=== PATIENT | male | born 1995 | race Caucasian/White ===

== ENCOUNTER 2025-03-18 | Outpatient (REF) | payer OTHER, SELFPAY ==
--- NOTE | ~2025-03-18 | XR_ITS ---
CLINICAL HISTORY: M51.369 - Other intervertebral disc degeneration, lumbar region without ... 7 views lumbar spine Comparison: None Findings: Normal alignment. No acute fractures or dislocation. No significant degenerative change. IMPRESSION: No acute findings. This document has been electronically signed by: Demarco Boston MD on 03/21/2025 10:53:25
--- OUTSIDE RECORDS SUMMARY | 2025-04-19 08:17 | XMS_ITS | Clinical Summary ---
Author Organization [facility] Address [address] [place] [address] Care Team Providers Care Post Tensioning Ironworker Helper Name Role Phone Roberto Walker PA-C Primary Care Provider [phone] Source Comments PLEASE NOTE, if this patient is a minor, it may be UNLAWFUL to discuss sensitive information that is contained in these records (such as FAMILY PLANNING, MENTAL HEALTH or SUBSTANCE ABUSE) with the minor patient's parent or other person without the patient's specific authorization.[facility] Allergies No known active allergies Medications meloxicam (MOBIC) 15 mg tabletIndicatio ns:Acute midline low back pain with bilateral sciatica Take 1 Tablet by mouth once daily 30 Tablet 02/24/2022 Active cyclobenzaprine (FLEXERIL) 10 mg tabletIndicatio ns:Acute midline low back pain with bilateral sciatica Take 1 Tablet by mouth nightly at bedtime as needed for muscle spasms 30 Tablet 1 02/25/2022 Active diclofenac sodium (VOLTAREN) 1 % gelIndications: Acute midline low back pain with bilateral sciatica,Chroni c left shoulder pain APPLY TO AFFECTED AREA TWICE A DAY 100 g 2 02/25/2022 Active Active Problems Problem Noted Date Diagnosed Date Bipolar I disorder with depression (CMS & HHS-HC C) 08/25/2020 Chronic left shoulder pain 08/25/2020 Cigarette nicotine dependenc e with nicotine-induced disorder 08/25/2020 Resolved Problems Problem Noted Date Diagnosed Date Resolved Date Bilateral impacted cerumen 08/25/2020 0 06/08/2021 Social History Tobacco Use Types Packs/Day Years Used Date Smoking Tobacco: Every Day Smokeless Tobacco: Never Tobacco Cessation:Ready to Q uit: No; Counseling Given: Yes Comments:just under a pack a day 12-15 Alcohol Use Standard Drinks/Week Comments Never 0 (1 standard drink = 0.6 oz pur e alcohol) Social Connections Answer Date Recorded Connectedness 0 02/25/2022 Financial Resource Strain Answer Date R ecorded Financial Resource Strain 0 2021 Stress Answer Date Recorded Stress 0 02/25/2022 Physical Activity Answer Date Recorded Physical Activity 0 08/25/2020 Food Insecurity Answer Date Recorded Food 0 02/25/2022 Transportation Needs Answer Date Record ed Transportation 0 02/25/2022 Housing Stability Answer Date Recorded Housing 0 02/25/2022 Safety and Environment Answer Date Catarino rded Safety 0 02/25/2022 Utilities Answer Date Recorded Utilities 0 02/25/2022 Employment Answer Date Recorded Employment 0 08/25/2020 Sex and Gender Information Value Date Recorded Sex Assigned at Male 08/25/2020 7:25 PM PST Legal Sex Male 12:06 PM PDT Gender Identity Male 08/25/2020 7:25 PM PST Sexual Orientation Straight 08/25/2020 7: 25 PM PST Last Filed Vital Signs Vital Sign Reading Time Taken Comments Blood Pressure 130/80 12/24/2021 11:21 AM EST Pulse 106 12/24/2021 11:21 AM EST Temperature 37.2 C (98.9 F) 12/24/2021 11:21 AM EST Respiratory Rate 18 12/24/2021 11:21 AM EST Oxygen Saturation - - Inhaled Oxygen Concentration - - Weight 83 kg (183 lb) 12/24/2021 11:21 AM EST Height 188 cm (6' 2 ) 12/24/2021 11:21 AM EST Body Mass Index 23.5 12/24/2021 11:21 AM EST Plan of Treatment Health Maintenance Due Date Last Done Comments LTBI Screening (#1) 1993 Syphilis Screening 10/20/2007 Imm-DTaP/Tdap/Td (1 - Tdap) 2012 Imm-Hepatitis A (1 of 2 - Ri sk 2-dose series) 2012 Imm-Hepatitis B (1 of 3 - 19 + 3-dose series) 2012 Imm-Pneumococcal (1 of 2 - PCV) 2012 Annual Wellness (Adult): Ind icated (All Coverage) 08/25/2021 08/25/2020 Tobacco Screening 08/25/2021 08/25/2020 HIV Screening 12/24/2022 12/24/2021, 08/25/2020 Anxiety Screening 02/25/2023 02/25/2022 Tobacco Cessation Counseling (#1) 02/25/2023 [id number] ( season) 2024 Alcohol and Drug Screen 10/20/2024 02/26/20 22, 01/07/2022, 08/25/2020 Depression Annual Screen 10/20/2024 02/25/2022 Hypertension Screening (#1) 12/23/2024 Imm-Influenza (Season Ended) 2025 Hepatitis B Screening Completed 12/24/2021, Hepatitis C Screening Completed 12/24/2021, Procedures Procedure Name Priority Date/Time Associated Diagnosis Comments HIV 1/2 AG & AB W/RFLX (4TH GEN) Routine 12/24/2021 11:38 AM EST Weight loss ACUTE HEPATITIS PANEL W/RFLX Routine 12/24/2021 11:38 AM EST Weight loss from Last 3 Months or Most Recently Relevant to Health Maintenance Results * HIV 1/2 AG & AB W/RFLX (4TH GEN) (12/24/2021 11:38 AM EST) HIV AG/AB, 4TH GEN NON-REAC TIVE NON-REAC TIVE [employer] [facility] Comment: HIV-1 antigen and HIV-1/HIV-2 antibodies were not detected. There is no laboratory evidence of HIV infection. PLEASE NOTE: This information has been disclosed to you from records whose confidentiality may be protected by state law. If your state requires such protection, then the state law prohibits you from making any further disclosure of the information without the specific written consent of the person to whom it pertains, or as otherwise permitted by law. A general authorization for the release of medical or other information is NOT sufficient for this purpose. For additional information please refer to http://education.[employer]/faq/HJN897 (This link is being provided for informational/ educational purposes only.) The performance of this assay has not been clinically validated in patients less than 2 years old. Blood Blood / Unknown 12/24/2021 1 1:38 AM EST 12/24/2021 11:38 AM EST us Attila [facility] - BLOOD DRAW Final Result Performing Organization Address City/[facility]/ZIP Co de Phone Number [employer] [facility] [address] [address], [employer] [facility] [address] [place] [address] * HEPATITIS PANEL W/RFLX (12/24/2021 11:38 AM EST) HEPATITIS A IGM ANTIBODY NON-REACT VIVIANA NON-REACT VIVIANA [employer] [facility] COMMENT [employer] [facility] HEPATITIS B SURFACE ANTIGEN NON-REACT VIVIANA NON-REACT VIVIANA [employer] [facility] HEPATITIS B CORE IGM ANTIBODY NON-REACT VIVIANA NON-REACT VIVIANA [employer] [facility] HEPATITIS C ANTIBODY NON-REACT VIVIANA NON-REACT VIVIANA [employer] [facility] SIGNAL TO CUT-OFF 0.06 <1.00 [employer] [facility] Comment: HCV antibody was non-reactive. There is no laboratory evidence of HCV infection. In most cases, no further action is required. However, if recent HCV exposure is suspected, a test for HCV RNA (test code 91934) is suggested. For additional information please refer to http://Dexmo.[employer]/faq/VHC56v3 (This link is being provided for informational/ educational purposes only.) Blood Blood / Unknown 12/24/2021 1 1:38 AM EST 12/24/2021 11:38 AM EST Narrative [employer] [facility] - 12/25/2021 7:07 AM EST For additional information, please refer to http://Dexmo.[employer]/faq/EFT016 (This link is being provided for informational/ educational purposes only.) us Attila [facility] - BLOOD DRAW Final Result Performing Organization Address [facility]/ZIP Co de Phone Number [employer] [facility] [address] [address], [employer] [address] [address] from Last 3 Months or Most Recently Relevant to Health Maintenance Insurance [employer] Care Teams Post Tensioning Ironworker Helper Relationship Specialty Start Date End Date Roberto Walker PA-C [address] [place] [address] PCP - General 03/29/22
--- OUTSIDE RECORDS SUMMARY | 2025-04-19 08:17 | XMS_ITS | Clinical Summary ---
Author Organization [facility] ity Address [address] [place] [address] Care Team Providers Care Railroad Dining Car Steward/Stewardess Name Role Phone Dat Powers MD Primary Care Provider [phone] Social History Tobacco Use Types Packs/Day Years Used Date Smoking Tobacco: Never Assessed Sex and Gender Information Value Date Recorded Sex Assigned at Not on file Legal Sex Male 1:36 PM EST Gender Identity Not on file Sexual Orientation Not on file Last Filed Vital Signs Vital Sign Reading Time Taken Comments Blood Pressure 126/64 08/17/2022 1:56 PM EDT Sit ting R Arm Pulse 100 08/17/2022 1:56 PM EDT Temperature - - Respiratory Rate - - Oxygen Saturation - - Inhaled Oxygen Concentration - - Weight - - Height - - Body Mass Index - - Plan of Treatment Health Maintenance Due Date Last Done Comments DTaP,Tdap,and Td Vaccines (1 - Tdap) 2012 Hepatitis B Vaccines (1 of 3 - 19+ 3-dose series) 2012 Depression Screening 09/17/2022 HIV Screening 09/17/2022 Hepatitis C Screening 09/17/2022 Social Influencers of Health Screening 09/17/2022 COVID-19 Vaccine ( - 2023-2 5 season) 2024 Influenza Vaccine (#1) 2025 HIB Vaccines Aged Out No longer eligi ble based on patient's age to complete this topic HPV Vaccines Aged Out No longer eligi ble based on patient's age to complete this topic Hepatitis A Vaccines Aged Out No long er eligible based on patient's age to complete this topic IPV Vaccines Aged Out No longer eligi ble based on patient's age to complete this topic MMR Vaccines Aged Out No longer eligi ble based on patient's age to complete this topic Meningococcal ACWY Vaccine Aged Out N o longer eligible based on patient's age to complete this topic Meningococcal B Vaccine Aged Out No l onger eligible based on patient's age to complete this topic Pneumococcal Vaccine: Pediat rics (0 to 5 Years) and At-Risk Patients (6 to 64 Years) Aged Out No longer eligible b ased on patient's age to complete this topic RSV Immunization Patients Un dung 20 months Aged Out No longer eligible b ased on patient's age to complete this topic Varicella Vaccines Aged Out No longer eligible based on patient's age to complete this topic Care Teams Railroad Dining Car Steward/Stewardess Relationship Specialty Start Date End Date Dat Powers MD PCP - General Family Medicine 09/25/17
--- OUTSIDE RECORDS SUMMARY | 2025-04-19 08:17 | XMS_ITS | Encounter Summary ---
Author Organization [facility] Address [address] [place] [address] Care Team Providers Care Satellite Manager Name Role Phone Dat Powers MD Primary Care Provider [phone] Encounter Details Date Type Department Care Team (Late st Contact Info) Description 11/30/2018 Scanned Document [facility] [address] [place] [address] [phone] Provider, Generic Social History Tobacco Use Types [...] on filedocumented in this encounter Care Teams Satellite Manager Relationship Specialty Start Date End Date Dat Powers MD [address] [place] [address] PCP - General Family Medicine 11/17/18 documented as of this encounter
== END 2025-03-18 00:01 | disposition home or self-care (01) ==
LOC: HO.XRAY
PROVIDERS: PCP Nurse Practitioner Family; Visit Provider Nurse Practitioner Family
DX: M51.369 Other intervertebral disc degeneration, lumbar region without mention of lumbar back pain or lower extremity pain (principal); M54.51 Vertebrogenic low back pain; M54.50 Low back pain, unspecified; G89.29 Other chronic pain
CPT/HCPCS: 72114

== ENCOUNTER 2025-03-18 09:54 | Outpatient (AMB) | payer OTHER, SELFPAY ==
--- NOTE | 2025-03-18 10:12 | A.OFFVIS_ITS ---
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 The pain commenced in 2021 after an episode of carrying his son, which precipitated a collapse due to sudden weakness in the legs. Though the frequency of falls has reduced, pain persists. The patient has previously engaged in physical therapy and received two epidural steroid injections in 2021 and 2022 at [facility] targeting his lumbar spine with partial relief. The pain primarily originates in the lower back and radiates down both legs to the heels, exacerbating around the ankles during intense episodes. An MRI from September 2024 highlighted a broad central posterior disc herniation at L5-S1, with an increase in size and mild central canal narrowing, but without nerve root impingement. It also noted a mild disc bulge at L4-L5. The patient's back pain scores a 7-8/10 in severity, with leg pain at 6-7/10. Symptoms also include leg weakness, numbness, and tingling, impacting daily activities and sleep. 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 Patient completed physical therapy in 2023 at [facility] with worsening low back pain with exercises. Patient reports he has upcoming neurosurgical evaluation at [facility] next week. - Onset and Timing: Commenced in 2021 post-incident carrying son. - Quality and Character: Constant, aching, pulsing, shooting, stabbing, tightness, pulling, burning, radiating, tingling, cramping. - Primary Location: Lower back. - Areas of Radiation: Radiates bilaterally down the legs to heels, sometimes affecting the ankles. - Exacerbating Factors: Bending down intensifies the pain, walking, climbing stairs. - Relieving Factors: No significant relief found; pain management includes medication and previous injections. - Interference with Activities: Severe pain disrupts sleep and affects daily functioning. - Affect: The patient expresses symptoms of depression associated with chronic pain. - Analgesia: Currently takes Meloxicam 15 mg once daily and duloxetine for pain relief. Heat therapy. Pain levels are 7-8/10. - Adverse Effects: Denies any side effects with current medication regime. - Activities of Daily Living: Pain impedes sleep and daily functional abilities; not worked in 3 years due to pain. - Aberrant Drug Related Behaviors: No reports of medication misuse. Oswestry Low Back Pain Disability Score=28 [facility] Medical History (Updated 03/18/25 @ 10:49 by DUGLAS Felix) Depression Perirectal abscess Rectal bleeding Foreskin problem Erectile dysfunction Hyperlipidemia Chronic lower back pain Behavioral problem Social History Alcohol intake: current Alcohol intake frequency: holidays/special occasions only Patient Tobacco Use Status: Former Tobacco user e-Cigarette/Vaping Use: Currently Using Substance Use Type: Marijuana Review of Systems Const Details: - Musculoskeletal: Reports low back pain with weakness and numbness in both legs. - Neurological: Reports tingling in the legs. Denies bladder or bowel dysfunction or saddle anesthesia. - Psychiatric: Reports depression. Sees providers at [facility] 2021-present. - Cardiovascular: Denies smoking, reports rare alcohol use. Consumes coffee and marijuana daily. All systems reviewed & are unremarkable except as noted in HPI and below Physical Exam Vital Signs: Last Vital Signs Pulse 97 03/18/25 10:17 BP 137/79 03/18/25 10:17 Pulse Ox 98 03/18/25 10:17 Oxygen Delivery Method Room Air 03/18/25 10:17 BMI result Body Mass Index 29.9 General: Appears afebrile. Alert and oriented. Mood and affect appropriate. Follows and participates in conversation appropriately. Respiratory effort is unlabored. No cough. Able to transition from sit to stand unassisted. Ambulates with bilaterally normal heel strike and toe off. General: Yes no CVA tenderness Back/Spine/Pelvis Other: Patient is able to walk and stand on heels and tip toes with no difficulties demonstrating good motor tone. Normal gait, no limping. Can flex forward to 65- 70 degrees and extend to 10-15 degrees before experiencing lumbar pain. Demonstrates 5/5 strength of quadriceps bilaterally as well as flexion/dorsiflexion of bilateral feet against resistance. 2+ pedal pulses bilaterally. Straight leg rise with dorsiflexion negative bilaterally. +2 patellar and achilles reflexes bilaterally. Facet loading test positive bilaterally. Rush sign, Michael?s and Stinchfield tests are negatively bilaterally. No groin pain with I/E hip rotations. Valsalva maneuver negative. Back: no CVA tenderness Cervical Spine: cervical ROM normal, cervical muscular tenderness and No Cervical spine tenderness Thoracic/Lumbar Spine: thoracic and lumbar spine normal to inspection, No Thoracic/lumbar spine scar(s), Lasegue's sign negative, straight leg raise negative bilaterally, pain with thoraco-lumbar ROM, paraspinal muscle tenderness, thoraco-lumbar ROM limited, No thoracic spinal tenderness and lumbar spinal tenderness (L4-S1) Pelvis: no buttock tenderness Sacroiliac joints: bilaterally nontender Results Reviewed Results Reviewed: 10/08/24 [facility] Assessment & Plan Assessment & Plan (1) Chronic lower back pain: Code(s): M54.50 - Low back pain, unspecified; G89.29 - Other chronic pain Category: Medical (2) Lumbar degenerative disc disease: Code(s): M51.369 - Other intervertebral disc degeneration, lumbar region without mention of lumbar back pain or lower extremity pain Category: Medical (3) Vertebrogenic low back pain: Code(s): M54.51 - Vertebrogenic low back pain Category: Medical Plan Patient will complete lumbar spine X-rays with flexion and extension views to assess for any instability. Current pain management with Meloxicam, heat, activity modifications continues. Patient has upcoming neurosurgical evaluation next week at [facility] per patient. We discussed interventional treatments for axial and discogenic low back pain, including diagnostic versus therapeutic injections for potential stimulated or ablative procedures for sustained pain relief. We reviewed current management for pain and depression and highlighted the importance of consulting his psychiatric provider. Patient should follow up with neurosurgery for further evaluation and possible treatment, considering both surgical and nonsurgical interventions depending on diagnostic results. All questions and concerns have been answered and patient agreed with the treatment plan. Follow-up for x-ray results and sooner as needed. Patient was informed and verbally consented to the use of an ambient scribe for clinic note documentation during this visit. Orders: Orders 2 XR lumbar spine 6V w bending Today G89.29 - Other chronic pain, M51.369 - Other intervertebral disc degeneration, lumbar region without mention of lumbar back pain or lower extremity pain, M54.50 - Low back pain, unspecified, M54.51 - Vertebrogenic low back pain Coding Level of Care Code New Pt Level 4 (15507) Diagnoses Chronic lower back pain M54.50; G89.29 Lumbar degenerative disc disease M51.369 Vertebrogenic low back pain M54.51
[2025-03-18 10:17] VITALS: BP 137/79; PULSE 97; O2SAT 98; BMI 29.9
--- OUTSIDE RECORDS SUMMARY | 2025-03-18 10:25 | XMS_ITS | Encounter Summary ---
Author Organization [facility] Address [address] [place] [address] Care Team Providers Care Electrifier Operator Name Role Phone Dat Powers MD Primary Care Provider [phone] Encounter Details Date Type Department Care Team (Late st Contact Info) Description 11/30/2018 Scanned Document [facility] [address] [place] [address] [phone] Provider, Generic Social History Tobacco Use Types Packs/Day Years Used Date Smoking Tobacco: Every Day Smokeless Tobacco: Never Alcohol Use Standard Drinks/Week Comments Yes 0 (1 standard drink = 0.6 oz pur e alcohol) AUDIT-C Answer Date Recorded Frequency of Alcohol Consumption Monthly or less 11/25/2018 Average Number of Drinks Not on file 019 Frequency of Binge Drinking Not on file 03/2019 Sex and Gender Information Value Date Recorded Sex Assigned at Not on file Legal Sex Male 11:13 AM EST Gender Identity Not on file Sexual Orientation Not on file documented as of this encounter Plan of Treatment Not on file documented as of this encounter Visit Diagnoses Not on filedocumented in this encounter Care Teams Electrifier Operator Relationship Specialty Start Date End Date Dat Powers MD [address] [place] [address] PCP - General Family Medicine 11/17/18 documented as of this encounter
== END 2025-03-18 10:53 | disposition home or self-care (01) ==
LOC: HO.PMC 09:57
PROVIDERS: PCP Nurse Practitioner Family; Visit Provider Nurse Practitioner Family
DX: M54.50 Low back pain, unspecified (principal); G89.29 Other chronic pain; M51.369 Other intervertebral disc degeneration, lumbar region without mention of lumbar back pain or lower extremity pain; M54.51 Vertebrogenic low back pain
CPT/HCPCS: 99204

== ENCOUNTER → 2025-03-18 09:54 | Outpatient (BNVA) | payer OTHER, SELFPAY | PROVIDERS: PCP Nurse Practitioner Family; Visit Provider Nurse Practitioner Family | DX: M54.50 Low back pain, unspecified (principal); M51.369 Other intervertebral disc degeneration, lumbar region without mention of lumbar back pain or lower extremity pain; M54.51 Vertebrogenic low back pain; G89.29 Other chronic pain | CPT/HCPCS: 99202 ==

== ENCOUNTER → 2025-03-18 11:04 | Outpatient (BNV) | payer OTHER, SELFPAY | PROVIDERS: PCP Nurse Practitioner Family; Visit Provider Radiology Diagnostic Radiology | DX: M51.369 Other intervertebral disc degeneration, lumbar region without mention of lumbar back pain or lower extremity pain (principal) | CPT/HCPCS: 72114 ==